=== PATIENT | female | born 1980 | race Caucasian/White ===

== ENCOUNTER 2017-08-11 08:45 | Emergency (ER) | payer OTHER, MEDICAID ==
[2017-08-11] MEDS: AMOXICILLIN 500 MG CAP PO (09:34)
== END 2017-08-11 09:45 | disposition home or self-care (01) ==
LOC: M ED 08:45
DX: K08.89 Other specified disorders of teeth and supporting structures (principal); K04.7 Periapical abscess without sinus; Z88.5 Allergy status to narcotic agent
CPT/HCPCS: 99282

== ENCOUNTER → 2018-04-22 | Outpatient (REF) | payer OTHER ==
[~2018-04-22] MED LIST: AMOX500C PO; IBUP200C25 PO; OXYC1TAB23 PO; XULA1DIS
[2018-04-22 12:47] LABS: BASO % 0.5 % (0.0-1.0); EOS # 0.1 10^3/uL (0.0-0.50); EOS % 1.3 % (0.0-3.0); HEMATOCRIT 40.2 % (36.0-47.0); HEMOGLOBIN 12.9 g/dl (12.0-15.5); LYMPH % 54.8 % (24.0-44.0); MEAN CORPUSCULAR HEMOGLOBIN 30.6 pg (27.0-33.0); MEAN CORPUSCULAR HGB CONC 32.1 g/dl (32.0-36.5); MEAN CORPUSCULAR VOLUME 95.3 fl (80.0-96.0); MONO # 0.2 10^3/uL (0.0-0.8); MONO % 6.2 % (0.0-5.0); NEUTROPHILS # 1.4 10^3/uL (1.8-7.7); NEUTROPHILS % 36.9 % (36.0-66.0); PLATELET COUNT, AUTOMATED 328 10^3/uL (150-450); RED BLOOD COUNT 4.22 10^6/uL (4.00-5.40); WHITE BLOOD COUNT 3.7 10^3/uL (4.0-10.0)
[2018-04-22 13:18] LABS: ALBUMIN 3.8 GM/DL (3.2-5.2); ALT/SGPT 51 U/L (12-78); BILIRUBIN,TOTAL 0.4 MG/DL (0.2-1.0); BLOOD UREA NITROGEN 7 MG/DL (7-18); CALCIUM LEVEL 8.7 MG/DL (8.5-10.1); CARBON DIOXIDE LEVEL 27 MEQ/L (21-32); CHLORIDE LEVEL 105 MEQ/L (98-107); CHOLESTEROL LEVEL 221 MG/DL (<200); CHOLESTEROL RISK RATIO 3.453 (<5); CREATININE FOR GFR 0.58 MG/DL (0.55-1.30); FREE T4 1.14 NG/DL (0.76-1.46); GLOMERULAR FILTRATION RATE > 60.0 (>60); GLUCOSE, FASTING 81 MG/DL (70-100); HDL CHOLESTEROL 64 MG/DL (>40); LDL CHOLESTEROL 145 MG/DL (<100); NON-HDL-C 157 MG/DL; POTASSIUM SERUM 3.8 MEQ/L (3.5-5.1); SODIUM LEVEL 141 MEQ/L (136-145); THYROID STIMULATING HORMONE 0.995 uIU/ML (0.358-3.740); TOTAL PROTEIN 7.8 GM/DL (6.4-8.2); TRIGLYCERIDES LEVEL 61 MG/DL (<150)
[2018-04-23 16:21] LABS: Lyme Disease IgG/IgM Antibodie <0.91 ISR (0.00-0.90); Lyme Disease IgM Ab Quantitati <0.80 index (0.00-0.79)
== END ==
LOC: M LAB REF 12:12
PROVIDERS: ATTEND Family Medicine
DX: R10.9 Unspecified abdominal pain (principal); Z13.228 Encounter for screening for other metabolic disorders

== ENCOUNTER → 2019-01-27 | Outpatient (CLI) | payer OTHER | LOC: M RAD 11:02 | PROVIDERS: ATTEND Family Medicine | DX: M54.5 Low back pain (principal); Z53.9 Procedure and treatment not carried out, unspecified reason ==

== ENCOUNTER → 2019-03-31 | Outpatient (CLI) | payer OTHER ==
--- NOTE | 2019-03-31 14:08 | REPVR ---
PROCEDURE INFORMATION: Exam: MR Lumbar Spine Without Contrast. Exam date and time: 03/31/2019 1:32 PM Age: 38 years old Clinical indication: Patient HX: Low back pain, radiating down RT leg; Additional info: Chronic low back pain TECHNIQUE: Imaging protocol: Multiplanar magnetic resonance images of the lumbar spine without intravenous contrast. COMPARISON: No relevant prior studies available. FINDINGS: Vertebrae: There is 5 mm of grade 1 retrolisthesis of L5 with respect to S1. Normal vertebral body alignment is otherwise preserved. Vertebral body heights are within normal limits. Spinal cord: The conus medullaris terminates at L1/2. L1-L2: No significant disc disease. No significant spinal canal stenosis. No neural foraminal stenosis. L2-L3: There is shallow disc bulging. There is mild facet hypertrophy. The spinal canal and neural foramina are patent. L3-L4: There is shallow disc bulging. There is mild facet and ligamentous hypertrophy. There is mild right neural foraminal narrowing. L4-L5: There is shallow disc bulging. There is moderate facet hypertrophy. The spinal canal and neural foramina are patent. L5-S1: There is diffuse disc bulging/uncovering related to listhesis with a superimposed right inferior subarticular disc extrusion. This narrows the right lateral recess, with disc material in close contact with the right S1 nerve root. There is moderate facet hypertrophy. There is mild bilateral neural foraminal narrowing. Soft tissues: Unremarkable. IMPRESSION: Right inferior subarticular disc extrusion at L5/S1 results in potential compromise of the right S1 nerve root. Electronically signed by: Natividad Suggs On 03/31/2019 14:08:01 PM
== END ==
LOC: M RAD 12:46
PROVIDERS: ATTEND Family Medicine Addiction Medicine
DX: M54.5 Low back pain (principal)

== ENCOUNTER → 2022-02-24 | Outpatient (CLI) | payer OTHER ==
[~2022-02-24] MED LIST changes: +ISOVUE-370 76% 100ML VIAL As Ordered ONE
== END ==
LOC: M RAD 13:04
PROVIDERS: ATTEND Nurse Practitioner Family
DX: R06.02 Shortness of breath (principal)

== ENCOUNTER → 2022-07-23 | Outpatient (CLI) | payer OTHER ==
[~2022-07-23] MED LIST changes: -ISOVUE-370 76% 100ML VIAL As Ordered ONE
[2022-07-23 09:40] LABS: BASO % 0.3 % (0.0-1.0); EOS # 0.2 10^3/uL (0.0-0.5); EOS % 2.1 % (0.0-3.0); HEMATOCRIT 39.2 % (36.0-47.0); HEMOGLOBIN 13.1 g/dl (12.0-15.5); LYMPH # 2.4 10^3/uL (1.5-5.0); LYMPH % 31.1 % (24.0-44.0); MEAN CORPUSCULAR HEMOGLOBIN 31.9 pg (27.0-33.0); MEAN CORPUSCULAR HGB CONC 33.4 g/dl (32.0-36.5); MEAN CORPUSCULAR VOLUME 95.4 fl (80.0-96.0); MONO # 0.4 10^3/uL (0.0-0.8); MONO % 4.8 % (2.0-8.0); NEUTROPHILS # 4.7 10^3/uL (1.5-8.5); NEUTROPHILS % 61.6 % (36.0-66.0); PLATELET COUNT, AUTOMATED 301 10^3/uL (150-450); RED BLOOD COUNT 4.11 10^6/uL (4.00-5.40); WHITE BLOOD COUNT 7.7 10^3/uL (4.0-10.0)
[2022-07-23 10:09] LABS: ALBUMIN 3.8 G/DL (3.2-5.2); ALKALINE PHOSPHATASE 52 U/L (46-116); ALT/SGPT 22 U/L (7.0-40); AST/SGOT 11 U/L (<34); BILIRUBIN,TOTAL 0.4 MG/DL (0.3-1.2); BLOOD UREA NITROGEN 14 MG/DL (9-23); CALCIUM LEVEL 8.7 MG/DL (8.5-10.1); CARBON DIOXIDE LEVEL 26 MMOL/L (20-31); CHLORIDE LEVEL 104 MMOL/L (98-107); CHOLESTEROL LEVEL 224 MG/DL (<200); CHOLESTEROL RISK RATIO 3.29 (<5); CREATININE FOR GFR 0.64 MG/DL (0.55-1.30); GLOMERULAR FILTRATION RATE > 60.0 (>58); GLUCOSE, FASTING 92 MG/DL (60-100); MAGNESIUM LEVEL 1.6 MG/DL (1.8-2.4); POTASSIUM SERUM 4.2 MMOL/L (3.5-5.1); SODIUM LEVEL 137 MMOL/L (136-145); TOTAL PROTEIN 7.3 G/DL (5.7-8.2); TRIGLYCERIDES LEVEL 160 MG/DL (<150)
[2022-07-23 10:11] LABS: THYROID STIMULATING HORMONE 1.383 uIU/ML (0.55-4.78); TOTAL 25(OH) VITAMIN D 46.1 NG/ML (20.0-100.0); VITAMIN B12 LEVEL 356 PG/ML (211-911)
== END ==
LOC: M RAD 09:01
PROVIDERS: ATTEND Registered Nurse Community Health
DX: Z00.01 Encounter for general adult medical examination with abnormal findings (principal); R60.0 Localized edema; R25.2 Cramp and spasm; Z13.29 Encounter for screening for other suspected endocrine disorder; Z13.1 Encounter for screening for diabetes mellitus

== ENCOUNTER 2024-08-19 14:23 | Emergency (ER) | payer OTHER ==
[~2024-08-19] VITALS: Ht 165.1 cm; Wt 72.4 kg
[2024-08-19] MEDS ORDERED: ACET-1592 PO (14:36)
[2024-08-19] MEDS ORDERED: BUSP15TA47 (14:36)
[2024-08-19] MEDS ORDERED: KETO-204 (14:36)
[2024-08-19] MEDS ORDERED: ISIB1TAB (14:36)
[2024-08-19 17:37] LABS: PLATELET COUNT, AUTOMATED 277 10^3/uL (150-450)
[2024-08-19 18:01] LABS: CALCIUM LEVEL 9.0 MG/DL (8.5-10.1); CARBON DIOXIDE LEVEL 30 MMOL/L (20-31); CHLORIDE LEVEL 103 MMOL/L (98-107); CREATININE FOR GFR 0.62 MG/DL (0.55-1.30); GLOMERULAR FILTRATION RATE > 90.0 (>58); POTASSIUM SERUM 4.1 MMOL/L (3.5-5.1); SODIUM LEVEL 142 MMOL/L (136-145)
[2024-08-19 18:28] LABS: INR 0.86
[2024-08-19 18:29] LABS: HCG, SERUM QUALITATIVE NEGATIVE (NEGATIVE)
[2024-08-19] MEDS ORDERED: ELIQ5TAB PO (18:33)
[2024-08-19] MEDS: APIXABAN 5 MG TAB PO ONE (18:44)
[2024-08-19 18:45] VITALS: BP 155/78; TEMP 99.5; O2SAT 99
== END 2024-08-19 18:45 | disposition home or self-care (01) ==
LOC: M ED 14:23
DX: I82.411 Acute embolism and thrombosis of right femoral vein (principal); Z88.5 Allergy status to narcotic agent; Z79.1 Long term (current) use of non-steroidal anti-inflammatories (NSAID); Z79.01 Long term (current) use of anticoagulants; Z79.899 Other long term (current) drug therapy